=== PATIENT | female | born 1995 | race Caucasian/White ===

== ENCOUNTER 2016-12-28 01:46 | Inpatient (IN) | payer OTHER ==
[2016-12-27 11:53] VITALS: BP 125/71
[2016-12-27 13:23] LABS: BASOPHIL % 0.3 % (0.0-0.2); EOSINOPHIL # 0.1 10^3/uL (0.0-0.2); EOSINOPHIL % 0.7 % (0.0-5.0); HEMATOCRIT 35.6 % (36.0-46.0); LYMPHOCYTES # 2.1 10^3/uL (1.0-4.8); MEAN CELL HGB 31.7 pg (26-34); MEAN CELL HGB CONCENTRATION 33.7 g/dL (33-37); MEAN CORP VOLUME 93.9 fL (78-100); MEAN PLATELET VOLUME 9.7 fL (7.8-11.0); MONOCYTES # 0.7 10^3/uL (0.3-0.8); MONOCYTES % 8.4 % (5.0-12.0); NEUTROPHIL # 5.9 10^3/uL (1.8-7.7); NEUTROPHILS % 66.1 % (41.0-85.0); RED BLOOD CELL 3.79 10^6/uL (4.00-5.20); WHITE BLOOD CELL 8.9 10^3/uL (4.5-11.0)
[2016-12-27 13:28] LABS: BILIRUBIN,URINE NEGATIVE (NEGATIVE); PH,URINE 7 (5.0-6.0); UROBILINOGEN,URINE NORMAL (NEGATIVE)
[2016-12-27 13:29] LABS: APPEARANCE,URINE CLEAR (CLEAR); UA COLOR YELLOW (YELLOW)
[2016-12-28] VITALS (8 sets, daily range): BP systolic 85–102; BP diastolic 49–63
[~2016-12-28] VITALS: Ht 157.5 cm; Wt 67.6 kg
[~2016-12-28 01:46] MED LIST: FERR-29 PO; PREN1TAB59 PO
[2016-12-28] MEDS ORDERED: LACTATED RINGERS 1,000 ML ONE ×4 (05:12→21:57)
[2016-12-28] MEDS ORDERED: LACTATED RINGERS 1,000 ML IV SCH (06:30)
[2016-12-28] MEDS ORDERED: NS 100ML 200 ML IV ONE (06:41)
[2016-12-28] MEDS ORDERED: ZOFRAN ONE (06:41)
[2016-12-28] MEDS ORDERED: ASTRAMORPH-PF ONE (06:42)
[2016-12-28] MEDS ORDERED: TORADOL ONE ×3 (06:42→22:52)
[2016-12-28] MEDS ORDERED: PITOCIN ONE (06:42)
[2016-12-28] MEDS ORDERED: ROCEPHIN ONE (06:43)
[2016-12-28] MEDS ORDERED: PITOCIN 0.02 UNIT in LACTATED RINGERS 1 ML IV SCH (08:50)
[2016-12-28] MEDS ORDERED: DEMEROL IV PRN (09:00)
[2016-12-28] MEDS: PRENATAL VITAMIN TABLET PO SCH (09:00)
[2016-12-28] MEDS ORDERED: AMBIEN PO PRN (09:00)
[2016-12-28] MEDS ORDERED: PHENERGAN IV PRN (09:00)
[2016-12-28] MEDS ORDERED: ZOFRAN ODT SL PRN (09:00)
[2016-12-28] MEDS ORDERED: ZOFRAN IV PRN (09:00)
[2016-12-28] MEDS ORDERED: MILK OF MAGNESIA PO PRN (09:00)
[2016-12-28] MEDS ORDERED: GAVISCON ES TABLET CHEW PO PRN (09:00)
[2016-12-28] MEDS ORDERED: NORCO 7.5MG PO PRN (09:00)
[2016-12-28] MEDS ORDERED: DILAUDID IV PRN (09:00)
[2016-12-28] MEDS ORDERED: BENADRYL PO PRN (09:00)
--- NOTE | 2016-12-28 09:16 | PRM.OPH ---
Immediate Post Op Note Summary of Operation Date: Dec 28, 2016 Time: 09:00 Pre-Operative DX: IUP @ 39 4/7 WKS; H/O PRIOR C/S X 1; POOR PNC Post-OP DX: SAME Anesth.Used: SPINAL Indications: REPEAT LOW TRANSVERSE SECTION VIA PFANNENSTIEL SKIN INCISION Physician's Summary: Healthy-appearing liveborn female infant in ROT position, nuchal cord X 1, clear -colored fluid/membranes throughout. Baby girl born at 0812, Apgars 8 and 9, weight 3110grams. Good cry heard in delivery room. Normal-appearing placenta. Normal-appearing uterus, tubes bilaterally, ovaries bilaterally. Not that much scar tissue noted in pelvis. Assistants: Listed Assisting Physicians BLAIR Cook THEATER USHER; Stephanie Askew THEATER USHER Anesthesiologist/TELECOMMUNICATIONS FIELD ENGINEER Reina Garcia THEATER USHER Specimen(s) Removed: List Specimen: NONE SENT Estimated Blood Loss: EBL/ESTIMATED BLOOD LOSS: (MIL: 500 Complications: Complications: NONE Assessment & Plan: Update Surgical HX/Problems: (1) Status post repeat low transverse section (2) 39 weeks gestation of (3) H/O: (4) Poor hygiene Assessment & Plan: Routine postop care. FABIANO RAMÍREZ MD Dec 28, 2016 09:11
[2016-12-28] MEDS ORDERED: PHENERGAN ONE (11:17)
[2016-12-28] MEDS ORDERED: TUCKS ONE (11:17)
[2016-12-28] MEDS ORDERED: DEMEROL ONE (11:18)
[2016-12-28] MEDS ORDERED: TUCKS TP PRN (11:30)
[2016-12-28] MEDS: TORADOL IV PRN ×2 (14:39→23:02)
[2016-12-28] MEDS ORDERED: LACTATED RINGERS 1,000 ML IV ONE ×2 (15:00→22:06)
[2016-12-28] MEDS ORDERED: NORCO 7.5MG PO ONE ×2 (17:47→21:57)
[2016-12-28] MEDS: NORCO 7.5MG PO PRN ×2 (17:50→22:05)
[2016-12-29] MEDS ORDERED: LANOLIN HYDROUS TP PRN
[2016-12-29] MEDS ORDERED: BENADRYL PO ONE (01:27)
[2016-12-29] MEDS ORDERED: TORADOL ONE (04:44)
[2016-12-29] MEDS: TORADOL IV PRN (04:47)
[2016-12-29 05:38] LABS: BASOPHIL % 0.2 % (0.0-0.2); EOSINOPHIL # 0.1 10^3/uL (0.0-0.2); EOSINOPHIL % 0.7 % (0.0-5.0); HEMATOCRIT 29.5 % (36.0-46.0); HEMOGLOBIN 9.5 g/dL (12.0-15.0); LYMPHOCYTES # 2.8 10^3/uL (1.0-4.8); LYMPHOCYTES % 28.9 % (24.0-44.0); MEAN CELL HGB 31.3 pg (26-34); MEAN CELL HGB CONCENTRATION 32.2 g/dL (33-37); MEAN PLATELET VOLUME 9.2 fL (7.8-11.0); MONOCYTES # 0.9 10^3/uL (0.3-0.8); MONOCYTES % 8.9 % (5.0-12.0); NEUTROPHIL # 5.8 10^3/uL (1.8-7.7); RED BLOOD CELL 3.04 10^6/uL (4.00-5.20); RED CELL DISTRIBUTION WIDTH 13.8 % (11.5-14.5); WHITE BLOOD CELL 9.5 10^3/uL (4.5-11.0)
[2016-12-29] MEDS ORDERED: NS 100ML 100 ML IV ONE (05:45)
[2016-12-29] MEDS ORDERED: ROCEPHIN ONE (05:45)
[2016-12-29] MEDS ORDERED: ROCEPHIN 1,000 MG in NS 100ML 100 ML IV SCH (06:00)
[2016-12-29] MEDS ORDERED: PRENATAL VITAMIN TABLET PO ONE (07:50)
[2016-12-29] MEDS ORDERED: NORCO 7.5MG PO ONE ×4 (07:51→21:17)
[2016-12-29] MEDS: NORCO 7.5MG PO PRN ×4 (07:54→21:21)
[2016-12-29] MEDS: PRENATAL VITAMIN TABLET PO SCH (07:55)
[2016-12-29] MEDS ORDERED: ZOFRAN ODT ONE (09:45)
[2016-12-29] MEDS ORDERED: MOTRIN ONE ×2 (11:21→19:30)
[2016-12-29] MEDS: MOTRIN PO PRN ×2 (11:35→19:39)
[2016-12-29] MEDS ORDERED: HYDR-925 PO (15:24)
--- NOTE | 2016-12-29 15:27 | PRM.DC ---
OB Discharge Summary Discharge Summary Discharge Diagnosis: S/P (S/P Repeat C/S) Complications: No Complications Abnormal Lab Results Laboratory Tests 12/29/16 05:24: White Blood Count 9.5, Red Blood Count 3.04L, Hemoglobin 9.5#L, Hematocrit 29.5L , Mean Corpuscular Volume 97.0, Mean Corpuscular Hemoglobin 31.3, Mean Corpuscular Hemoglobin Concent 32.2L, Red Cell Distribution Width 13.8, Platelet Count 125L, Mean Platelet Volume 9.2, Neutrophils (%) (Auto) 61.0, Lymphocytes (%) (Auto) 28.9, Monocytes (%) (Auto) 8.9, Neutrophils # (Auto) 5.8 , Lymphocytes # (Auto) 2.8, Monocytes # (Auto) 0.9H, Absolute Immature Granulocyte (auto 0.03, Eosinophils % 0.7, Basophils % 0.2, Basophils # 0.0, Eosinophil Count 0.1, Percent Immature Gran (Cell Imm) 0.30 Medications: Other (Rx Dawson 7.5/325 #60 no refills--written on triplicate prescription pad) Discharge Disposition: Stable Discharge Instructions: Pelvic Rest x 6 Weeks, Clinic F/U 1-2 Weeks, Regular Diet, Regular Activity, Meds as Prescribed, Call MD for Problems FABIANO RAMÍREZ MD Dec 29, 2016 15:27
[2016-12-30] MEDS ORDERED: NORCO 7.5MG PO ONE ×2 (00:48→07:29)
[2016-12-30] MEDS ORDERED: MOTRIN ONE (07:26)
[2016-12-30] MEDS ORDERED: PRENATAL VITAMIN TABLET PO ONE (07:28)
[2016-12-30] MEDS: NORCO 7.5MG PO PRN (07:39)
[2016-12-30] MEDS: PRENATAL VITAMIN TABLET PO SCH (07:40)
[2016-12-30] MEDS: MOTRIN PO PRN (07:40)
[2016-12-30 09:59] VITALS: BP 107/58
== END 2016-12-30 11:15 | disposition home or self-care (01) | DRG 540 ==
LOC: LND 01:46
PROVIDERS: ADMIT Hospitalist; ATTEND Hospitalist
PROC: 10D00Z1 Extraction of Products of Conception, Low, Open Approach (ICD-10-PCS; principal; 2016-12-28 08:00)
DX: O34.211 Maternal care for low transverse scar from previous cesarean delivery (principal); O69.81X0 Labor and delivery complicated by cord around neck, without compression, not applicable or unspecified; Z3A.39 39 weeks gestation of pregnancy; Z37.0 Single live birth; Z88.2 Allergy status to sulfonamides
CPT/HCPCS: 36415; 81002; 85025; 86885; 86900; 86901; 86921; A4338; J0696; J1885; J2175; J2405; J2550; J2590; J7120; Q0162; Q0163; J2274